=== PATIENT | female | born 1950 | race Asian ===

== ENCOUNTER 2020-07-15 08:22 | Day surgery (SDC) | payer OTHER ==
[2020-07-10 12:04] VITALS: BMI 19.8
[2020-07-15 09:05] VITALS: TEMP 98.1
[2020-07-15] MEDS ORDERED: TROPICAMIDE 1% OPHTH SOLN 15 ML BOTTLE ONE (09:14)
[2020-07-15] MEDS ORDERED: PHENYLEPHRINE 2.5% OPTHALMIC DROP BOTTLE ONE (09:14)
[2020-07-15] MEDS ORDERED: CIPROFLOXACIN 0.3% EYE DROPS 5 ML BOTTLE ONE (09:14)
[2020-07-15] MEDS ORDERED: CYCLOPENTOLATE 2% OPHTH SOLN 2 ML BOTTLE ONE (09:14)
[2020-07-15] MEDS: CYCLOPENTOLATE 2% OPHTH SOLN 2 ML BOTTLE OD SCH ×3 (09:20→09:30)
[2020-07-15] MEDS: TROPICAMIDE 1% OPHTH SOLN 15 ML BOTTLE OD SCH ×3 (09:20→09:30)
[2020-07-15] MEDS: CIPROFLOXACIN HCL 0.3% OPHTH 2.5ML BOTTLE OD SCH ×3 (09:20→09:30)
[2020-07-15] MEDS: PHENYLEPHRINE 2.5% OPHTH SOLN 15 ML BOTTLE OD SCH ×3 (09:20→09:30)
[2020-07-15] MEDS ORDERED: MIDAZOLAM HCL 2 MG/2 ML SINGLE DOSE VIAL ONE (09:29)
[2020-07-15] MEDS ORDERED: EPI-SHUGARCAINE (EPINEPHRINE 0.025% & LIDOCAINE-PF 0.75%) 4ML ONE (10:01)
[2020-07-15] MEDS ORDERED: NEO/POLYMYX B SULF/DEXAMETH OPHTHALMIC 5ML BOTTLE ONE (10:01)
[2020-07-15] MEDS ORDERED: TRYPAN BLUE 0.5 ML DISP.SYRIN ONE (10:01)
[2020-07-15] MEDS ORDERED: POVIDONE-IODINE 5% OPHTHALMIC PREP 30 ML SOLUTION ONE (10:01)
[2020-07-15] MEDS ORDERED: TETRACAINE 0.5% OPHTH SOLN 2 ML BOTTLE ONE (10:01)
[2020-07-15 11:57] VITALS: BP 118/56; PULSE 56
[2020-07-15] MEDS ORDERED: ACETAMINOPHEN 325 MG TABLET (FP) PO PRN (12:02)
[2020-07-15] MEDS ORDERED: ONDANSETRON 4 MG/2 ML VIAL IVPUSH PRN (12:02)
[2020-07-15] MEDS ORDERED: LACTATED RINGERS SOLUTION 1,000 ML IV SCH (12:15)
== END 2020-07-15 12:04 | disposition home or self-care (01) ==
LOC: FASU 08:22
PROVIDERS: ATTEND Ophthalmology
PROC: 08RJ3JZ Replacement of Right Lens with Synthetic Substitute, Percutaneous Approach (ICD-10-PCS; principal; 2020-07-15 10:53)
DX: H25.11 Age-related nuclear cataract, right eye (principal)